=== PATIENT | male | born 1990 | race Hispanic/Latino ===

== ENCOUNTER 2024-07-31 19:32 | Emergency (ER) | payer SELFPAY ==
--- NOTE | 2024-07-31 19:45 | ED.EYEPROB ---
HPI - Eye Problem General Chief complaint: Eye Problems Stated complaint: eye irritation foreign particle in eye Source: patient Mode of arrival: ambulatory Limitations: no limitations History of Present Illness HPI Narrative: 33-year-old male presented for complaint of left eye redness and foreign body sensation for few hours prior to arrival. He states while working on a bridge using a blanket washer he believes a piece of concrete or debris flew into the eye. He rinsed the eye immediately. He denies vision changes, photophobia, purulent drainage or itching. chief complaint: eye pain Related Data Allergies Allergy/AdvReac Type Severity Reaction Status Date / Time No Known Allergies Allergy Verified 07/31/24 19:42 Review of Systems Review of Systems: CONSTITUTIONAL: Denies body aches, fever, chills EYES:Endorses FB sensation, redness and pain to left eye eye; Denies visual changes or purulent drainage ENT: Denies rhinorrhea, congestion, sore throat, or otalgia. SKIN: Denies rash, itching, or wounds. MUSCULOSKELETAL: Denies back pain, joint pain, or myalgia. NEUROLOGIC: Denies headache, numbness, tingling, or weakness. All systems reviewed & are unremarkable except as noted in HPI and below PMFSH Comments At time of signature, I have reviewed and agree with nursing past medical, surgical, social and family history unless otherwise noted. Please see nursing chart for further information. There is no relevant family history pertinent to the presenting complaint Exam Narrative: GENERAL: Well-appearing HEAD: Normocephalic, atraumatic. EYES: Left conjunctival injection, PERRLA, EOMI. Lid eversion shows no foreign body. A corneal abrasion is identified at the 3 o'clock position over the iris per Wood's lamp exam ENT: Mucous membranes pink and moist. No rhinorrhea. CHEST: Clear to auscultation. HEART: Regular rate and rhythm. SKIN: Warm, dry, no rash. Normal skin turgor. NEURO: No focal deficits. Alert and oriented x3 Course Course Emergency Course: Patient is aware of diagnosis, understands and agrees to treatment plan. Anticipatory guidance given. Patient agrees to follow-up as directed and is aware of reasons to seek care at the emergency department. Portions of this record may have been created with voice recognition software Level of Care: Express Care Visit Vital Signs Vital signs: Vital Signs Temperature 98.2 F 07/31/24 19:46 Pulse Rate 62 07/31/24 19:46 Respiratory Rate 16 07/31/24 19:46 Blood Pressure 175/97 H 07/31/24 19:46 Pulse Oximetry 99 07/31/24 19:46 Oxygen Delivery Room Air 07/31/24 19:46 Temperature 98.2 F 07/31/24 19:46 Pulse Rate 62 07/31/24 19:46 Respiratory Rate 16 07/31/24 19:46 Blood Pressure 175/97 H 07/31/24 19:46 Pulse Oximetry 99 07/31/24 19:46 Oxygen Delivery Room Air 07/31/24 19:46 Procedures FB Removal Eye Foreign Body #1: Foreign Body Removal Date: 07/31/24 Location: eye (L) Topical anesthetic used: tetracaine Foreign body: other (none) Evidence of corneal penetration: Yes (corneal abrasion) Procedure performed under: other (Wood's lamp) Patient tolerated procedure: well and no complications Foreign Body Removal Narrative: Left Eye was anesthetized with 1 drop of tetracaine and anesthesia was achieved. Lid was everted and examined for foreign body. Corneal abrasion noted to 3 o'clock position over iris. No foreign body identified with Ford lamp. The eye was flushed with eye wash. Pt tolerated procedure well. MDM - Eye Problem MDM Narrative Medical decision making narrative: Discussed physical exam findings; left corneal abrasion. Reviewed prescriptions. Provided with eye referral list. Advised supportive measures and signs/symptoms to go to the ER. Pt is appropriate for outpt treatment and f/u. Differential Diagnosis Differential diagnosis: Like
[2024-07-31 19:46] VITALS: BP 175/97; PULSE 62; RESP 16; TEMP 36.8; O2SAT 99
== END 2024-07-31 20:34 | disposition home or self-care (01) ==
PROVIDERS: Emergency Provider Nurse Practitioner Family; Referring Provider Emergency Medicine
DX: S05.02XA Injury of conjunctiva and corneal abrasion without foreign body, left eye, initial encounter (principal); X58.XXXA Exposure to other specified factors, initial encounter; Y99.0 Civilian activity done for income or pay
CPT/HCPCS: 99203; A9270; G0463